=== PATIENT | male | born 1985 | race American Indian/Alaskan Native ===

== ENCOUNTER 2016-09-16 13:37 | Emergency (ER) | payer MEDICARE ==
--- NOTE | 2016-09-16 14:36 | Emergency Department Report ---
Chief Complaint: Psych Stated Complaint: MH EVAL Time Seen by Provider: 09/16/16 14:34 - HPI History of Present Illness: hearing voices chatter no si no hi a/v teixeira wants meds changed - ROS Review of Systems: hx aggitation MSE screening note: Focused history and physical exam performed. Due to findings the following was ordered: ED Disposition for MSE Condition: Stable
[2016-09-16 15:24] LABS: Basophils % (Auto) 0.3 % (0.0-1.8); Eosinophils % (Auto) 0.1 % (0.0-4.3); Hematocrit 42.6 % (35.5-45.6); Hemoglobin 14.1 gm/dl (11.8-15.2); Mean Corpuscular HGB Conc 33 % (32-34); Mean Corpuscular Hemoglobin 30 pg (28-32); Mean Corpuscular Volume 90 fl (84-94); Platelet Count 196 K/mm3 (140-440); Red Blood Count 4.76 M/mm3 (3.65-5.03); Red Cell Distribution Width 13.4 % (13.2-15.2); White Blood Count 8.5 K/mm3 (4.5-11.0)
[2016-09-16 15:41] LABS: Alanine Aminotransferase 18 units/L (7-56); Albumin 4.8 g/dL (3.9-5); Albumin/Globulin Ratio 1.5 %; Alkaline Phosphatase 42 units/L (35-129); Anion Gap 21 mmol/L; Blood Urea Nitrogen 12 mg/dL (9-20); Calcium 10.1 mg/dL (8.4-10.2); Carbon Dioxide 23 mmol/L (22-30); Chloride 99.6 mmol/L (98-107); Glucose 105 mg/dL (75-100); Potassium 4.3 mmol/L (3.6-5.0); Sodium 139 mmol/L (137-145)
[2016-09-16 17:02] LABS: Urine Drugs of Abuse Note Disclamer
[2016-09-16 17:25] LABS: Bilirubin,Urine NEG (Negative); Blood,Urine NEG (Negative); Ketones,Urine TR mg/dL (Negative); Leukocyte Esterase,Urine NEG (Negative); Mucus,Urine FEW /HPF; Nitrite,Urine NEG (Negative); Protein,Urine <15 mg/dL mg/dL (Negative); Urobilinogen,Urine < 2.0 mg/dL (<2.0); WBC,Urine < 1.0 /HPF (0.0-6.0)
--- NOTE | 2016-09-16 21:55 | Emergency Department Report ---
HPI - General Chief Complaint: Psych Time Seen by Provider: 09/16/16 21:45 - HPI HPI: This is a 31-year-old Afro-Y[place]i male presents to the emergency department by EMS from home with the complaint of feeling a schizophrenic exacerbation and/ or some psychosis. He has been on Fluphenazine and says that it is not working and is asking to be switched to look to [place]. The patient admits to auditory hallucinations and says that they are voices that are mocking him. He says that every time that he has a thought that they are making fun of him or incessant. He occasionally will have some visual sensations but denies any currently. He does not feel that the medication has made any difference and in fact he says that it has been worse recently. However the patient denies any suicidal or homicidal ideations. He lives with family. He has a psychiatrist, Dr. Frey, but has not been able to see them recently. He has an appointment coming up later in the month. ED Past Medical Hx - Past Medical History Previous Medical History?: Yes Hx Psychiatric Treatment: Yes - Surgical History Past Surgical History?: No - Social History Smoking Status: Never Smoker Substance Use Type: None - Medications Home Medications: Home Medications Medication Instructions Recorded Confirmed Last Taken Type No Known Home Medications [No 02/07/14 02/07/14 Unknown History Reported Home Medications] ED Review of Systems ROS: Stated complaint: MH EVAL Other details as noted in HPI Comment: All other systems reviewed and negative Constitutional: denies: chills, fever Eyes: denies: eye pain, eye discharge, vision change ENT: denies: ear pain, throat pain Respiratory: denies: cough, shortness of breath, wheezing Cardiovascular: denies: chest pain, palpitations Gastrointestinal: denies: abdominal pain, nausea, diarrhea Genitourinary: denies: urgency, dysuria Musculoskeletal: denies: back pain, joint swelling, arthralgia Skin: denies: rash, lesions Neurological: denies: headache, weakness, paresthesias Psychiatric: auditory hallucinations, visual hallucinations. denies: depression , homicidal thoughts, suicidal thoughts Physical Exam - Physical Exam Vital Signs: Vital Signs 09/16/16 14:34 Temperature 98.1 F Pulse Rate 104 H Respiratory 16 Rate Blood Pressure 147/108 O2 Sat by Pulse 99 Oximetry Physical Exam: GENERAL: The patient is well-developed well-nourished. HEENT: Normocephalic. Atraumatic. Extraocular motions are intact. Patient has moist mucous membranes. Pupils equal reactive to light bilaterally. NECK: Supple. Trachea is midline. CHEST/LUNGS: Clear to auscultation. There is no respiratory distress noted. HEART/CARDIOVASCULAR: Regular. There is no tachycardia. There is no gallop rub or murmur. ABDOMEN: Abdomen is soft, nontender. Patient has normal bowel sounds. There is no abdominal distention. SKIN: There is no rash. There is no edema. There is no diaphoresis. NEURO: The patient is awake, alert, and oriented. The patient is cooperative. The patient has no focal neurologic deficits. The patient has normal speech and gait. Cranial nerves II through XII grossly intact. MUSCULOSKELETAL: There is no tenderness or deformity. There is no limitation range of motion. There is no evidence of acute injury. ED Course Vital Signs 09/16/16 14:34 Temperature 98.1 F Pulse Rate 104 H Respiratory 16 Rate Blood Pressure 147/108 O2 Sat by Pulse 99 Oximetry ED Medical Decision Making - Lab Data Result diagrams: 09/16/16 14:53 09/16/16 14:53 - Medical Decision Making This is a 31-year-old male who called EMS to be brought in for a psychiatric evaluation who says that his medication is not controlling his schizophrenia and he feels like he has having worsening auditory hallucinations and internal stimuli. Vital signs stable. Labs unremarkable and do not show any etiology of the patient's symptoms. Urine drug screen and blood alcohol levels are negative. The crisis therapist was contacted for a consultation and says that this kind of psychosis usually require stabilization and recommends making the patient a 1013. While the patient does not have any suicidal or homicidal ideations, but does appear as if the patient's auditory hallucinations are worsening and affecting the patient's ability to take care of himself and he would benefit from psychiatric consultation and possible medication stabilization. Patient is medically clear for psychiatric placement. - Differential Diagnosis schizophrenia, schizoaffective, bipolar disorder, substance abuse Critical Care Time: No Critical care attestation.: If time is entered above; I have spent that time in minutes in the direct care of this critically ill patient, excluding procedure time. ED Disposition Clinical Impression: Auditory hallucinations Schizophrenia Qualifiers: Schizophrenia type: unspecified Qualified Code(s): F20.9 - Schizophrenia, unspecified Disposition: DC/TX PSY HOSP/PSY UNIT Is pt being admited?: No Condition: Stable Referrals: PRIMARY CARE, [Primary Care Provider] - 3-5 Days Time of Disposition: 23:25
[2016-09-17 08:06] VITALS: BP 132/100
--- NOTE | 2016-09-17 10:50 | Consultation ---
History of Present Illness - Reason for Consult Consult date: 09/17/16 Reason for consult: Mental Health Evaluation Requesting physician: WAYNE CHAMPION - Chief Complaint Chief complaint: "I was hearing voices" - History of Present Psychiatric Illness This is a 31-year-old Afro-Wallisian male presents to the emergency department by EMS from home with the complaint of feeling a schizophrenic exacerbation and/ or some psychosis. Today the patient is calm and cooperative. He stated calling EMS, because he was hearing "chatter" in both his ears. He also was seeing images on the side of the road. He stated that he had "pornographic thoughts yesterday." Today he denies these thoughts and seeing images. He stated that he takes Prolixin, but it does not work for him. He is willing to try another antipsychotic medication. He stated that he last took prolixin 2 days ago. He stated that the chatter has "ceased", but can return at anytime. He denies SI/HI 's, VH's, poor appetite, or depression. He stated that his sleep has been erratic lately, but slept well last night. He stated having a psychiatrist and he lives with his parents. He denies recreational drug use or alcohol consumption (etoh). Medications and Allergies Allergies Allergy/AdvReac Type Severity Reaction Status Date / Time No Known Allergies Allergy Unverified 02/07/14 11:58 Home Medications Medication Instructions Recorded Confirmed Last Taken Type No Known Home Medications [No 02/07/14 02/07/14 Unknown History Reported Home Medications] Mental Status Exam - Vital signs Last Vital Signs Temp 98.9 F 09/17/16 08:02 Pulse 96 H 09/17/16 08:02 Resp 16 09/17/16 08:02 BP 132/100 09/17/16 08:02 Pulse Ox 97 09/17/16 08:02 - Exam Narrative exam: ROS (-) depression, (+) psychosis MSE: Appearance: calm, cooperative Behavior: good eye contact, disorganized Speech: regular rate and tone Mood: "okay" Affect: euthymic Thought Process: linear Thought Content: denies SI/HI's and VH's Motor Activity: ambulatory Cognition: a/ox 3 Insight: limited Judgment: fair Results Result Diagrams: 09/16/16 14:53 09/16/16 14:53 Abnormal lab results 09/16/16 09/16/16 Range/Units 14:53 14:53 Seg Neutrophils % 77.7 H (40.0-70.0) % Glucose 105 H (75-100) mg/dL All other labs normal. Assessment and Plan Assessment and plan: Impression: Unspecified Psychotic DO. This is a 31-year-old Afro-Wallisian male presents to the emergency department by EMS from home with the complaint of feeling a schizophrenic exacerbation and/or some psychosis. Today the patient is calm and cooperative. He stated calling EMS, because he was hearing "chatter " in both his ears. He also was seeing images on the side of the road. He stated that he had "pornographic thoughts yesterday." Today he denies these thoughts and seeing images. Patient stated that he have not been hospitalized in a year (psy services). DD: Schizophrenia, R/O Bipolar Recommendation/Plan: Continue 1013 with placement to inpatient psy services. Will start psy medications. Gather collateral information to help determine treatment.
[2016-09-17] MEDS ORDERED: NACL 0.9% 1000 ML 0 ML ONE (11:40)
== END 2016-09-17 18:03 ==
LOC: EEVIPCON 13:37 → ED 13:37
DX: R44.0 Auditory hallucinations (principal); F20.9 Schizophrenia, unspecified
CPT/HCPCS: 36415; 80053; 80307; 81001; 84443; 85025; 99285; G0480; 80320; J7030

== ENCOUNTER 2016-12-09 23:24 | Emergency (ER) | payer MEDICARE ==
[2016-12-10 01:00] LABS: Basophils % (Auto) 0.2 % (0.0-1.8); Eosinophils % (Auto) 1.4 % (0.0-4.3); Mean Corpuscular HGB Conc 33 % (32-34); Mean Corpuscular Hemoglobin 30 pg (28-32); Mean Corpuscular Volume 91 fl (84-94); Platelet Count 199 K/mm3 (140-440); Red Blood Count 4.39 M/mm3 (3.65-5.03); White Blood Count 7.8 K/mm3 (4.5-11.0)
[2016-12-10 01:13] LABS: Anion Gap 20 mmol/L; BUN/Creatinine Ratio 13.75; Blood Urea Nitrogen 11 mg/dL (9-20); Calcium 9.6 mg/dL (8.4-10.2); Carbon Dioxide 24 mmol/L (22-30); Chloride 100.5 mmol/L (98-107); Glucose 87 mg/dL (75-100); Potassium 3.7 mmol/L (3.6-5.0); Sodium 141 mmol/L (137-145)
[2016-12-10 01:38] LABS: Urine Drugs of Abuse Note Disclamer
[2016-12-10 01:58] LABS: Bilirubin,Urine NEG (Negative); Blood,Urine NEG (Negative); Ketones,Urine TR mg/dL (Negative); Leukocyte Esterase,Urine NEG (Negative); Mucus,Urine FEW /HPF; Nitrite,Urine NEG (Negative)
--- NOTE | 2016-12-10 11:02 | Emergency Department Report ---
HPI - General Chief Complaint: Psych Time Seen by Provider: 12/10/16 10:39 - HPI HPI: Room 9 The patient is a 31-year-old male presenting with a chief complaint of hallucinations. The patient states she has a history of schizophrenia and was resistant was started on Invega last week. The patient states for the past 2 weeks his had negative loss which includes thinking about been animals and that people. The patient states he came to the hospital for that reason. The patient states when he arrived at the hospital he believes it "triggered something" and he began having visual and auditory hallucinations. The patient states and negative thoughts stopped in his visual hallucinations including seeing people disappear and reappear in his auditory hallucinations are voices that are unintelligible. Patient denies suicidal or homicidal ideation Location: Mental state Duration: 2 weeks, see above Quality: Negative Severity: Moderate Modifying factors: [see above] Context: [see above] Mode of transportation: Unknown ED Past Medical Hx - Past Medical History Previous Medical History?: No Hx Hypertension: Yes Hx Psychiatric Treatment: Yes (schizophrenia) Additional medical history: "tremors in hands and neck" - Surgical History Past Surgical History?: No - Family History Family history: no significant - Social History Smoking Status: Never Smoker Substance Use Type: None (denies illicit drug use) - Medications Home Medications: Home Medications Medication Instructions Recorded Confirmed Last Taken Type No Known Home Medications [No 02/07/14 02/07/14 Unknown History Reported Home Medications] ED Review of Systems ROS: Stated complaint: MH EVAL Other details as noted in HPI Comment: All other systems reviewed and negative Constitutional: denies: chills, fever Eyes: denies: eye pain, eye discharge, vision change ENT: denies: ear pain, throat pain Respiratory: denies: cough, shortness of breath, wheezing Cardiovascular: denies: chest pain, palpitations Endocrine: no symptoms reported Gastrointestinal: denies: abdominal pain, nausea, diarrhea Genitourinary: denies: urgency, dysuria Musculoskeletal: denies: back pain, joint swelling, arthralgia Skin: denies: rash, lesions Neurological: denies: headache, weakness, paresthesias Psychiatric: auditory hallucinations, visual hallucinations. denies: homicidal thoughts, suicidal thoughts Hematological/Lymphatic: denies: easy bleeding, easy bruising Physical Exam - Physical Exam Vital Signs: Vital Signs 12/09/16 23:58 Temperature 99 F Pulse Rate 88 Respiratory 18 Rate Blood Pressure 142/101 O2 Sat by Pulse 98 Oximetry Physical Exam: GENERAL: The patient is well-developed well-nourished male lying on stretcher not appearing to be in acute distress. Has earplugs in place HEENT: Normocephalic. Atraumatic. Extraocular motions are intact. Patient has moist mucous membranes. Earplugs in place NECK: Supple. Trachea midline CHEST/LUNGS: Clear to auscultation. There is no respiratory distress noted. HEART/CARDIOVASCULAR: Regular. There is no tachycardia. There is no gallop rub or murmur. ABDOMEN: Abdomen is soft, nontender. Patient has normal bowel sounds. There is no abdominal distention. SKIN: There is no rash. There is no edema. There is no diaphoresis. NEURO: The patient is awake, alert, and oriented. The patient is cooperative. The patient has normal speech MUSCULOSKELETAL: There is no evidence of acute injury. ED Course Vital Signs 12/09/16 23:58 Temperature 99 F Pulse Rate 88 Respiratory 18 Rate Blood Pressure 142/101 O2 Sat by Pulse 98 Oximetry - Consultations Consultation #1: 12/10/16 14:32 Is discussed with him H advisor consultant. Patient requesting placed in [facility] stating he feels safer there ED Medical Decision Making - Lab Data Result diagrams: 12/10/16 00:29 12/10/16 00:29 Laboratory Tests 12/10/16 12/10/16 12/10/16 00:29 00:29 00:29 WBC 7.8 RBC 4.39 Hgb 13.0 Hct 40.0 MCV 91 MCH 30 MCHC 33 RDW 14.0 Plt Count 199 Lymph % (Auto) 22.0 [place] % (Auto) 8.6 H Eos % (Auto) 1.4 Baso % (Auto) 0.2 Lymph # 1.7 [place] # 0.7 Eos # 0.1 Baso # 0.0 Seg Neutrophils % 67.8 Seg Neutrophils # 5.3 Carbon Dioxide 24 BUN 11 Creatinine 0.8 Estimated GFR > 60 BUN/Creatinine Ratio 13.75 Glucose 87 Calcium 9.6 Urine Color Urine Turbidity Urine pH Ur Specific [place] Urine Protein Urine Glucose (UA) Urine Ketones Urine Blood Urine Nitrite Urine Bilirubin Urine Urobilinogen Ur Leukocyte Esterase Urine WBC (Auto) Urine RBC (Auto) U Epithel Cells (Auto) Urine Mucus Urine Opiates Screen Urine Methadone Screen Ur Barbiturates Screen Ur Phencyclidine Scrn Ur Amphetamines Screen U Benzodiazepines Scrn Urine Cocaine Screen U Marijuana (THC) Screen Drugs of Abuse Note Plasma/Serum Alcohol < 0.01 12/10/16 12/10/16 Unknown Unknown WBC RBC Hgb Hct MCV MCH MCHC RDW Plt Count Lymph % (Auto) [place] % (Auto) Eos % (Auto) Baso % (Auto) Lymph # [place] # Eos # Baso # Seg Neutrophils % Seg Neutrophils # Carbon Dioxide BUN Creatinine Estimated GFR BUN/Creatinine Ratio Glucose Calcium Urine Color Yellow Urine Turbidity Clear Urine pH 5.0 Ur Specific [place] 1.019 Urine Protein 30 mg/dl Urine Glucose (UA) Neg Urine Ketones Tr Urine Blood Neg Urine Nitrite Neg Urine Bilirubin Neg Urine Urobilinogen 2.0 Ur Leukocyte Esterase Neg Urine WBC (Auto) 1.0 Urine RBC (Auto) 3.0 U Epithel Cells (Auto) < 1.0 Urine Mucus Few Urine Opiates Screen Presumptive negative Urine Methadone Screen Presumptive negative Ur Barbiturates Screen Presumptive negative Ur Phencyclidine Scrn Presumptive negative Ur Amphetamines Screen Presumptive negative U Benzodiazepines Scrn Presumptive negative Urine Cocaine Screen Presumptive negative U Marijuana (THC) Screen Presumptive negative Drugs of Abuse Note Disclamer Plasma/Serum Alcohol Sodium 141, potassium 3.7, chloride 100.5 - Differential Diagnosis schizophrenia Critical care attestation.: If time is entered above; I have spent that time in minutes in the direct care of this critically ill patient, excluding procedure time. ED Disposition Clinical Impression: Schizophrenia, Auditory hallucinations, Visual hallucinations Disposition: DC/TX-65 PSY HOSP/PSY UNIT Is pt being admited?: No Does the pt Need Aspirin: No Condition: Fair Referrals: PRIMARY CARE, [Primary Care Provider] - 3-5 Days Time of Disposition: 14:33 (awaiting acceptance)
[2016-12-10 20:37] VITALS: BP 143/99
--- NOTE | 2016-12-11 14:16 | Consultation ---
History of Present Illness - Reason for Consult Consult date: 12/11/16 Reason for consult: psychiatric consult - Chief Complaint Chief complaint: "Negative thoughts." 31 year old male seen in the ER for psychiatric evaluation. He is paranoid and does not want to discuss presenting complaint or symptoms. He states going to [place] is a good idea. He takes Invega 6mg daily at home. He denies side effects to it. Medications and Allergies Allergies Allergy/AdvReac Type Severity Reaction Status Date / Time No Known Allergies Allergy Unverified 02/07/14 11:58 Home Medications Medication Instructions Recorded Confirmed Last Taken Type Paliperidone [Paliperidone ER] 6 mg PO DAILY 12/10/16 12/10/16 Unknown History Past psychiatric history - Past Medical History Past Medical History: other (unknown) - past Psychiatric treatment and history Psych: Psychosis - Social History Social history: other (unknown) Mental Status Exam - Vital signs Last Vital Signs Temp 98.1 F 12/10/16 20:31 Pulse 77 12/10/16 20:31 Resp 15 12/11/16 07:59 BP 143/99 12/10/16 20:31 Pulse Ox 99 12/10/16 20:31 - Exam Narrative exam: unable to obtain any additional information Orientation: time, place, person Thought content: paranoia Thought Process: Tangential Speech: normal rate and pattern Motor activity: normal Level of consciousness: alert Interaction: uncooperative Results Result Diagrams: 12/10/16 00:29 12/10/16 00:29 All other labs normal. Assessment and Plan Assessment and plan: Impression: Psychosis unspecified UDS negative He clearly needs stabilization for acute paranoia and complaints of auditory and visual hallucinations per the record. Recommendation: 1013 and transfer to inpatient psychiatric facility
== END 2016-12-11 17:47 ==
LOC: ED 12-10 04:53 → EEVIPCON 12-10 04:53 → ED 12-11 17:47
DX: F20.9 Schizophrenia, unspecified (principal); R44.0 Auditory hallucinations; R44.1 Visual hallucinations; I10 Essential (primary) hypertension
CPT/HCPCS: 36415; 80048; 80307; 81001; 85025; 99285; G0480; 80320